=== PATIENT | female | born 1990 | race Caucasian/White ===

== ENCOUNTER → 2024-10-12 19:16 | Outpatient (REF) | payer BC, SELFPAY | LOC: CLAB 19:16 | PROVIDERS: ATTENDING PHYSICIAN Physician Assistant Medical | DX: J02.9 Acute pharyngitis, unspecified (principal) | CPT/HCPCS: 87070 ==

== ENCOUNTER → 2025-01-24 16:35 | Outpatient (REF) | payer BC, SELFPAY | LOC: CPAP 16:35 | PROVIDERS: ATTENDING PHYSICIAN Nurse Practitioner Family | DX: Z32.01 Encounter for pregnancy test, result positive (principal) | CPT/HCPCS: 87491; 87591; 87624 ==

== ENCOUNTER → 2025-02-09 08:07 | Outpatient (REF) | payer BC, SELFPAY ==
[2025-02-09 08:58] LABS: Urine Character Cloudy (Clear)
[2025-02-09 09:14] LABS: Hematocrit 34.0 % (37.0-47.0); Hemoglobin 11.9 g/dL (12.0-16.0); Mean Corp Hgb Conc. 35.0 g/dL (33.0-37.0); Mean Corpuscular Volume 92.9 fL (81.0-99.0); Nucleated Red Blood Cells % 0 %; Platelet Count 290 10^3/uL (130-400); Red Cell Dist. Width 11.9 % (11.5-14.5)
[2025-02-09 09:16] LABS: Urine Red Blood Cell 0-2 /HPF (0-2); Urine Squamous Cell 0-2 /LPF (Few)
[2025-02-09 10:15] LABS: Glycohemoglobin (HgbA1c) 4.8 % (4.0-5.6)
[2025-02-09 13:25] LABS: Beta HCG Quantitative 86629.00 mIU/ml
[2025-02-09 14:22] LABS: Hepatitis B Surface Antigen Negative (Negative)
[2025-02-09 14:40] LABS: Hepatitis C Antibody Negative (Negative)
== END ==
LOC: REG 08:07
PROVIDERS: ATTENDING PHYSICIAN Nurse Practitioner Family; FAMILY PHYSICIAN Physician Assistant Medical
DX: Z32.01 Encounter for pregnancy test, result positive (principal)
CPT/HCPCS: 36415; 81003; 81015; 83036; 84702; 85025; 86704; 86762; 86780; 86803; 86850; 86900; 86901; 87086; 87340; 87389

== ENCOUNTER → 2025-03-23 08:56 | Outpatient (REF) | payer BC, SELFPAY ==
[2025-03-23 11:33] LABS: 1 Hour after 50gm 158 mg/dl
[2025-03-25 13:10] LABS: AFP Multiple of Median (MoM) 0.51; Dating LMP CONF by US; Family Neural Tube Defect Hx No; Gestational Age Calc/Collectio 16 wks, 3 days; Patient's AFP Concentration 19 ng/mL
== END ==
LOC: REG 08:56
PROVIDERS: ATTENDING PHYSICIAN Internal Medicine Cardiovascular Disease; FAMILY PHYSICIAN Physician Assistant Medical; OTHER PHYSICIAN Obstetrics & Gynecology; OTHER PHYSICIAN Student in an Organized Health Care Education/Training Program
DX: R00.2 Palpitations (principal); O26.52 Maternal hypotension syndrome, second trimester; Z36.0 Encounter for antenatal screening for chromosomal anomalies; Z34.92 Encounter for supervision of normal pregnancy, unspecified, second trimester
CPT/HCPCS: 36415; 82105; 82950; 84443

== ENCOUNTER → 2025-03-27 07:17 | Outpatient (REF) | payer BC, SELFPAY | LOC: PNTC 07:17 | PROVIDERS: ATTENDING PHYSICIAN Obstetrics & Gynecology | DX: O35.8XX0 Maternal care for other (suspected) fetal abnormality and damage, not applicable or unspecified (principal) | CPT/HCPCS: 76805 ==

== ENCOUNTER → 2025-03-30 11:50 | Outpatient (REF) | payer BC, SELFPAY | LOC: RCS 11:50 | PROVIDERS: ATTENDING PHYSICIAN Internal Medicine Cardiovascular Disease; FAMILY PHYSICIAN Physician Assistant Medical | DX: O26.52 Maternal hypotension syndrome, second trimester (principal); I95.1 Orthostatic hypotension | CPT/HCPCS: 93306 ==

== ENCOUNTER → 2025-04-18 07:31 | Outpatient (REF) | payer BC, SELFPAY | LOC: PNTC 07:31 | PROVIDERS: ATTENDING PHYSICIAN Obstetrics & Gynecology | DX: O35.00X0 Maternal care for (suspected) central nervous system malformation or damage in fetus, unspecified, not applicable or unspecified (principal) | CPT/HCPCS: 76811; 76817 ==

== ENCOUNTER → 2025-05-09 13:49 | Outpatient (REF) | payer BC, SELFPAY | LOC: PNTC 13:49 | PROVIDERS: ATTENDING PHYSICIAN Obstetrics & Gynecology | DX: O46.92 Antepartum hemorrhage, unspecified, second trimester (principal); O26.852 Spotting complicating pregnancy, second trimester | CPT/HCPCS: 36415; 76815; 86850; 86900; 86901; 96372; J2790 ==

== ENCOUNTER → 2025-06-22 10:08 | Outpatient (REF) | payer BC, SELFPAY ==
[2025-06-22 11:01] LABS: Hematocrit 31.9 % (37.0-47.0); Hemoglobin 11.5 g/dL (12.0-16.0); Mean Corp Hgb Conc. 36.1 g/dL (33.0-37.0); Mean Corpuscular Volume 91.1 fL (81.0-99.0); Nucleated Red Blood Cells % 0 %; Platelet Count 259 10^3/uL (130-400); Red Cell Dist. Width 12.2 % (11.5-14.5)
[2025-06-22 16:10] LABS: Syphilis/T. pallidum Ab Reflex Negative (Negative)
== END ==
LOC: REG 10:08
PROVIDERS: ATTENDING PHYSICIAN Obstetrics & Gynecology; FAMILY PHYSICIAN Physician Assistant Medical
DX: Z34.93 Encounter for supervision of normal pregnancy, unspecified, third trimester (principal)
CPT/HCPCS: 36415; 85025; 86780